=== PATIENT | female | born 1990 | race American Indian/Alaskan Native ===

== ENCOUNTER 2018-09-05 12:23 | Emergency (ER) | payer SELFPAY ==
[2018-09-05] MEDS ORDERED: BICILLIN L-A IM ONE (14:49)
[2018-09-05] MEDS ORDERED: TYLENOL PO ONE (14:51)
[2018-09-05] MEDS ORDERED: DELTASONE PO ONE (14:52)
--- NOTE | 2018-09-05 14:56 | Emergency Department Report ---
HPI - General Chief Complaint: Sore Throat Time Seen by Provider: 09/05/18 14:43 - HPI HPI: Patient is a 28-year-old female who presents to ED with his mother complaining of throat pain 3 days. Patient describes pain as throbbing in nature, 8 out of 10 intensity, nonradiating, localized to his throat. Admits pain with swallowing and eating. Patient admits no appetite due to throat pain. Patient denies fever/chills nausea/vomiting/abdominal pain/shortness of breath/chest pain/headache. ED Past Medical Hx - Past Medical History Previous Medical History?: No - Surgical History Past Surgical History?: Yes Additional Surgical History: - Social History Smoking Status: Current Every Day Smoker Substance Use Type: Marijuana - Medications Home Medications: Home Medications Medication Instructions Recorded Confirmed Last Taken Type Acetaminophen [Tylenol] 325 mg PO TID #30 capsule 09/05/18 Unknown Rx Nystas/Diphen/Xyl Visc/Mylanta 15 ml MM Q4H PRN #120 ml 09/05/18 Unknown Rx [Magic Mouthwash] ED Review of Systems ROS: Stated complaint: SOB/POSSIBLE PREG Other details as noted in HPI Comment: All other systems reviewed and negative ENT: throat pain. denies: ear pain, dental pain, hearing loss, congestion Respiratory: denies: cough Physical Exam - Physical Exam Vital Signs: Vital Signs 09/05/18 12:27 Temperature 98.0 F Pulse Rate 105 H Respiratory 18 Rate Blood Pressure 112/63 O2 Sat by Pulse 99 Oximetry Physical Exam: GENERAL: Alert and oriented x3, no apparent distress, Normal Gait, atraumatic. HEAD: Head is normocephalic and a-traumatic. MOUTH:Mouth is well hydrated and without lesions. Tonsils erythematous and swollen with exudate, Uvula midline, Tongue not elevated. Mucous membranes are moist. Moderate exudate on both tonsils , no lesions. Patent airways. NECK: Supple. Non edematous, No carotid bruits. No lymphadenopathy or thyromegaly. No C-spine tenderness LUNGS: Symetrical with respiration, No wheezing, no rales or crackles, CTAB. HEART: S1, S2 present, regular rate and rhythm without murmur, no rubs, no gallops. Non tender to palpation SKIN: Warm and dry, No lesions, No ulceration or induration present. ED Course Vital Signs 09/05/18 12:27 Temperature 98.0 F Pulse Rate 105 H Respiratory 18 Rate Blood Pressure 112/63 O2 Sat by Pulse 99 Oximetry ED Medical Decision Making - Medical Decision Making 28-year-old male presents with strep pharyngitis. ED course: Rapid strep tests ordered rapid strep test positive Patient received 1 dose of Tylenol, 1.2 million units of penicillin, 60 mg of prednisone. Vital signs stable patient is in no acute or respiratory distress. Discussed findings with patient about the positive strep. Discussed treatment in ED with patient Discussed the patient that strep throat is contagious and to limit sharing spoons and such. Discussed with patient follow-up with primary care physician as well as PROFESSIONAL HEALTHCARE REPRESENTATIVE as referred. Patient verbally states he understands and will comply to follow-up. Patient mentioned that she just found out 2 days ago that she was . Discussed with patient she'll need an PROFESSIONAL HEALTHCARE REPRESENTATIVE. Referrals given for PROFESSIONAL HEALTHCARE REPRESENTATIVE. Discussed increase hydration, increase food. Patient requested a confirmation R. I told patient we did not make his confirmation later is in the ER and she would need to go to or or her PROFESSIONAL HEALTHCARE REPRESENTATIVE which I have referred her. Signed patient was treated in the ED for strep throat. Vital signs are normal she is in no acute distress. Critical care attestation.: If time is entered above; I have spent that time in minutes in the direct care of this critically ill patient, excluding procedure time. ED Disposition Clinical Impression: Strep pharyngitis Disposition: DC-01 TO HOME OR SELFCARE Is pt being admited?: No Does the pt Need Aspirin: No Condition: Stable Instructions: Strep Throat (ED), Tonsillitis (ED) Additional Instructions: Make sure to follow up with the primary care physician as discussed. Strep throat is very contagious. Do not share spoons of foot items. Take all your medications as you've been prescribed. If you have any worsening symptoms or develop new symptoms please return to ED immediately. Prescriptions: Acetaminophen [Tylenol] 325 mg PO TID #30 capsule Nystas/Diphen/Xyl Visc/Mylanta [Magic Mouthwash] 15 ml MM Q4H PRN #120 ml PRN Reason: Sore Throat Referrals: [facility] [Outside] - 3-5 Days [facility] [Outside] - 3-5 Days PRIMARY CARE, [Primary Care Provider] - 3-5 Days AJAY RAPHAEL MD [Referring] - 3-5 Days TROY SMYTH MD [Staff Physician] - 3-5 Days JULIET SMYTH MD [Referring] - 3-5 Days Forms: Accompanied Note, Work/School Release Form(ED) Time of Disposition: 15:02
[2018-09-05 15:16] VITALS: BP 120/70
== END 2018-09-05 15:15 | disposition home or self-care (01) ==
LOC: ED 12:23
DX: J02.0 Streptococcal pharyngitis (principal); F17.200 Nicotine dependence, unspecified, uncomplicated; F12.10 Cannabis abuse, uncomplicated
CPT/HCPCS: 87116; 87430; 96372; 99283; J0561; J7512

== ENCOUNTER 2019-04-21 15:04 | Outpatient (CLI) | payer MEDICAID ==
[2019-04-21 15:58] VITALS: BP 107/58
[2019-04-21] MEDS ORDERED: LACTATED RINGERS 1,000 ML IV SCH (16:00)
[2019-04-21 16:07] LABS: Amphetamine Screen,Urine PRESUMPTIVE NEGATIVE; Benzodiazepines Screen,Urine PRESUMPTIVE NEGATIVE; Cannabinoid Screen,Urine PRESUMPTIVE NEGATIVE; Cocaine Screen,Urine PRESUMPTIVE NEGATIVE; Methadone Screen,Urine PRESUMPTIVE NEGATIVE; Opiate Screen,Urine PRESUMPTIVE NEGATIVE
[2019-04-21 16:09] LABS: Amorphous Crystals,Urine Few; Bacteria,Urine 3+ /HPF (Negative); Bilirubin,Urine NEG (Negative); Blood,Urine NEG (Negative); Color,Urine Yellow (Yellow); Mucus,Urine 1+ /HPF; Protein,Urine <15 mg/dL mg/dL (Negative); Urobilinogen,Urine < 2.0 mg/dL (<2.0)
--- NOTE | 2019-04-21 17:48 | Ultrasound Report ---
ULTRASOUND OBSTETRIC Indication: Third trimester Findings: There is a single intrauterine . BPD = 8.4 cm = 33 weeks, 5 day(s). Head circumference = 31.1 cm = 34 weeks, 5 day(s). Abdominal circumference = 32.5 cm = 36 weeks, 3 day(s). Femur length = 7.3 cm = 37 weeks, 2 day(s). Overall estimated sonographic age = 35 weeks, day(s). heart rate is 133 beats per minute. Estimated weight is 2854 grams position is cephalic. Placenta is posterior near the fundus and grade 1 . Amniotic fluid volume appears normal. Amniotic fluid index is 11.3 cm The neuro anatomy is not well seen due to lie and position and age. This spine is n ot well visualized. The abdominal cord insertion is not well seen Impression: 1. Single living intrauterine with estimated sonographic age of 35 weeks, 4 day(s). 2. No sonographic abnormality identified. neuroanatomy, spine and cord insertion are not well v isualized. BIOPHYSICAL PROFILE. INDICATION: THIRD TRIMESTER FINDINGS: 'The fetus receives a score of 8 out of 8. Score of 2 for breathing movements, score of 2 for f etal movements, score of 2 for posture and tone, and score of 2 for qualitative amniotic fluid volume. IMPRESSION: Biophysical profile score is 8/8 Signer Name: Luis Feliciano MD Signed: 04/21/2019 5:44 PM Workstation Name: [id number]
== END 2019-04-21 17:30 | disposition home or self-care (01) ==
LOC: TRG 15:04
PROVIDERS: ATTEND Obstetrics & Gynecology
DX: O47.1 False labor at or after 37 completed weeks of gestation (principal); Z3A.38 38 weeks gestation of pregnancy
CPT/HCPCS: 59025; 76805; 76819; 80307; 81001; 87076; 87086; 87186

== ENCOUNTER 2020-06-10 21:29 | Emergency (ER) | payer MEDICAID ==
[2020-06-10 22:33] VITALS: BP 101/62
--- NOTE | 2020-06-11 02:59 | Emergency Department Report ---
ED Female HPI - General Chief complaint: Skin/Abscess/Foreign Body Stated complaint: FOREIGN OBJECT IN GENITAL AREA Source: patient Mode of arrival: Ambulatory Limitations: No Limitations - History of Present Illness Initial comments: Patient is a 30-year-old -[place] female with no past medical history presented to the ED with complaint of a tampon stuck in her vaginal canal for the last 6 hours and unable to remove it by itself, and requesting the tampon to be removed. Patient states that although she puts the tampon in her vagina over 8 hours ago, she cannot remember having removed it, and while at home she tried to search her vaginal canal with her fingers but was unable to retrieve the tampon. Patient denies any vaginal pain, dysuria, urinary frequency and urgency, chest pain, shortness of breath, abdominal pain, vaginal bleeding, vaginal discharge, fever and chills or low back pain. MD Complaint: other (foreign body stuck in vaginal canal) -: Sudden, hour(s) (7) Location: other (vaginal) Radiation: non-radiating Severity: mild Severity scale (0 -10): 0 Consistency: constant Improves with: none Worsens with: none Are you Now?: No Associated Symptoms: denies other symptoms. denies: vaginal discharge, vaginal bleeding, abdominal pain, nausea/vomiting, fever/chills, headaches, loss of appetite, dysuria, hematuria, rash, seizure, shortness of breath, syncope, weakness - Related Data Sexually active: Yes : 2 Para: 2 A: 0 Previous Rx's Medication Instructions Recorded Last Taken Type Acetaminophen [Tylenol] 325 mg PO TID #30 capsule 09/05/18 Unknown Rx Nystas/Diphen/Xyl Visc/Mylanta 15 ml MM Q4H PRN #120 ml 09/05/18 Unknown Rx [Magic Mouthwash] Allergies Allergy/AdvReac Type Severity Reaction Status Date / Time No Known Allergies Allergy Verified 04/21/19 15:33 ED Review of Systems ROS: Stated complaint: FOREIGN OBJECT IN GENITAL AREA Other details as noted in HPI Constitutional: denies: chills, fever Eyes: denies: eye pain, eye discharge, vision change ENT: denies: ear pain, throat pain Respiratory: denies: cough, shortness of breath, wheezing Cardiovascular: denies: chest pain, palpitations Endocrine: no symptoms reported Gastrointestinal: denies: abdominal pain, nausea, diarrhea Genitourinary: other (Foreign body in the vaginal canal). denies: urgency, dysuria, discharge Musculoskeletal: denies: back pain, joint swelling, arthralgia Skin: denies: rash, lesions Neurological: denies: headache, weakness, paresthesias Psychiatric: denies: anxiety, depression Hematological/Lymphatic: denies: easy bleeding, easy bruising ED Past Medical Hx - Past Medical History Previous Medical History?: No Hx Hypertension: No Hx Diabetes: No Hx Deep Vein Thrombosis: No Hx Renal Disease: No Hx Sickle Cell Disease: No Hx Seizures: No Hx Asthma: No Hx HIV: No - Surgical History Past Surgical History?: Yes Additional Surgical History: - Social History Smoking Status: Current Every Day Smoker Substance Use Type: None - Medications Home Medications: Home Medications Medication Instructions Recorded Confirmed Last Taken Type Acetaminophen [Tylenol] 325 mg PO TID #30 capsule 09/05/18 Unknown Rx Nystas/Diphen/Xyl Visc/Mylanta 15 ml MM Q4H PRN #120 ml 09/05/18 Unknown Rx [Magic Mouthwash] ED Physical Exam - General Limitations: No Limitations General appearance: alert, in no apparent distress - Head Head exam: Present: atraumatic, normocephalic, normal inspection - Eye Eye exam: Present: normal appearance, PERRL, EOMI Pupils: Present: normal accommodation - ENT ENT exam: Present: normal exam, normal orophraynx, mucous membranes moist, TM's normal bilaterally, normal external ear exam - Neck Neck exam: Present: normal inspection, full ROM - Respiratory Respiratory exam: Present: normal lung sounds bilaterally. Absent: respiratory distress, wheezes, rales, rhonchi, chest wall tenderness, accessory muscle use, decreased breath sounds - Cardiovascular Cardiovascular Exam: Present: regular rate, normal rhythm, normal heart sounds. Absent: systolic murmur, diastolic murmur, rubs, gallop - GI/Abdominal GI/Abdominal exam: Present: soft, normal bowel sounds. Absent: tenderness, guarding, rebound, hyperactive bowel sounds, hypoactive bowel sounds, organomegaly - External exam: Present: normal external exam Speculum exam: Present: normal speculum exam. Absent: vaginal bleeding, foreign body (No foreign body identified in the vaginal or around the cervix) Bi-manual exam: Present: normal bi-manual exam, other (Female RN ediscovery project manager Ms. Ashton present during the pelvic exam). Absent: cervical motion tendernes, adnexal tenderness - Extremities Exam Extremities exam: Present: normal inspection, full ROM, normal capillary refill - Back Exam Back exam: Present: normal inspection, full ROM. Absent: tenderness, CVA tenderness (R), CVA tenderness (L), muscle spasm, paraspinal tenderness, vertebral tenderness - Neurological Exam Neurological exam: Present: alert, oriented X3, CN II-XII intact, normal gait, reflexes normal - Psychiatric Psychiatric exam: Present: normal affect, normal mood - Skin Skin exam: Present: warm, dry, intact, normal color. Absent: rash ED Course Vital Signs 06/10/20 22:30 Temperature 98.3 F Pulse Rate 87 Respiratory 18 Rate Blood Pressure 101/62 O2 Sat by Pulse 100 Oximetry ED Medical Decision Making - Medical Decision Making This is a 30-year-old -[place] female with no past medical history presented to the ED with complaint of a tampon stuck in her vaginal canal for the last 6 hours and unable to remove it by itself, and requesting the tampon to be removed. Patient states that although she puts the tampon in her vagina over 8 hours ago, she cannot remember having removed it, and while at home she tried to search her vaginal canal with her fingers but was unable to retrieve the tampon. In the ED, patient is alert and oriented x3 and is not in distress. Physical exam is unremarkable and there was no foreign body identified in the vaginal canal during the pelvic exam, and therefore the tampon may have dropped at home possibly in the toilet prior to the patient arrival in the ED. Patient was discharged home and advised to follow-up with her DEVELOPMENT COACH physician or primary care physician 5 to 7 days for reevaluation or return to the ED immediately if symptoms get worse. - Differential Diagnosis Vaginal foreign body; PID; UTI; Critical care attestation.: If time is entered above; I have spent that time in minutes in the direct care of this critically ill patient, excluding procedure time. ED Disposition Clinical Impression: Foreign body in vulva and vagina, initial encounter Disposition: TO HOME OR SELFCARE Is pt being admited?: No Does the pt Need Aspirin: No Condition: Stable Instructions: Vaginal Foreign Body (ED) Additional Instructions: Follow-up with your DEVELOPMENT COACH physician in 5 to 7 days for reevaluation. Return to the ED immediately if symptoms get worse. Referrals: LIGIA RAPHAEL MD [Primary Care Provider] - 3-5 Days Time of Disposition: 02:59 Print Language: TOGOLESE
== END 2020-06-11 03:25 | disposition home or self-care (01) ==
LOC: ED 21:29
DX: T19.2XXA Foreign body in vulva and vagina, initial encounter (principal); F17.200 Nicotine dependence, unspecified, uncomplicated; Z79.899 Other long term (current) drug therapy; W45.8XXA Other foreign body or object entering through skin, initial encounter; Y93.89 Activity, other specified; Y92.89 Other specified places as the place of occurrence of the external cause; Y99.8 Other external cause status
CPT/HCPCS: 99283